=== PATIENT | male | born 1955 | race Caucasian/White ===

== ENCOUNTER 2018-06-08 09:30 | Observation (INO) ==
[2018-06-08] MEDS ORDERED: Nitroglycerin 0.4 MG TAB.SUBL SL ONE (09:40)
[2018-06-08] MEDS ORDERED: 0.9 % Sodium Chloride 1,000 ML IVC ONE (09:41)
--- NOTE | 2018-06-08 09:41 | Emergency Department Note ---
Disposition Clinical Impression: Chest pain Qualifiers: Chest pain type: unspecified Qualified Code(s): R07.9 - Chest pain, unspecified Disposition: Admitted As Inpatient Condition: Good Referrals: Lisa Durbin MD [Primary Care Provider] - Forms: ED Satisfaction Letter Time of Disposition: 12:06 Chest Pain HPI - General Chief Complaint: ED Chest Pain Stated Complaint: CP Time Seen by Provider: 06/08/18 09:39 Vital Signs Reviewed: Yes Nursing Notes Reviewed: Yes - History of Present Illness HPI Narrative: 62-year-old male past medical history of stents, hypertension, hyperlipidemia, smoking, uses emergency department with couple weeks of ongoing chest tightness , but worsening last night. Patient currently has chest pain as 2 out of 10. Received aspirin en route. Severity scale (1-10): 2 - Related Data Home Medications Medication Instructions Recorded Confirmed Metoprolol [Lopressor] 25 mg PO BID 10/01/16 06/08/18 Irbesartan/Hydrochlorothiazide 1 each PO DAILY 12/27/16 06/08/18 [Avalide 150-12.5 mg Tablet] Esomeprazole Magnesium [Nexium 20 mg PO DAILY 12/31/16 06/08/18 24Hr] Aspirin [Adult Aspirin] 81 mg PO DAILY 06/08/18 06/08/18 Previous Rx's Medication Instructions Recorded Atorvastatin [Lipitor] 40 mg PO HS #30 tablet 09/12/16 Allergies Allergy/AdvReac Type Severity Reaction Status Date / Time No Known Allergies Allergy Verified 09/10/16 16:27 All systems ED: reviewed and negative except as stated. Review of Systems: As Per HPI Constitutional: Denies: fever Cardiovascular: Reports: chest pain Respiratory: Denies: cough, dyspnea Gastrointestinal: Denies: abdominal pain, nausea, vomiting Musculoskeletal: Denies: back pain Integumentary: Denies: rash Neurological: Denies: headache Psychiatric: Denies: anxiety Chest Pain PMH - Past Medical History Medical history: Reports: coronary artery disease, GERD, hyperlipidemia, hypertension, myocardial infarction Surgical history: Reports: orthopedic, other, sinus surgery Psychiatric history: Reports: no psych history - Social History Smoking Status: Current every day smoker Alcohol use: Reports: none Drug use: Reports: none Physical Exam - General General appearance: alert, in no apparent distress - Head Head exam: normocephalic - Eye Eye exam: Present: EOMI - ENT ENT exam: normal oropharynx - Neck Neck exam: Present: trachea midline - Chest Chest inspection: Present: symmetric chest wall rise - Respiratory Respiratory exam: Present: normal lung sounds bilaterally. Absent: respiratory distress - Cardiovascular Cardiovascular exam: Present: normal rhythm, bradycardia - Abdominal Exam Abdominal exam: Present: soft, Non-Tender. Absent: distention, guarding, rebound, rigidity - Extremities Exam Extremities exam: Present: normal capillary refill - Back Exam Back exam: Present: full ROM - Neurological Exam Neurological exam: Present: alert, oriented X3 - Psychiatric Psychiatric exam: Present: normal affect, normal mood - Skin Skin exam: Present: warm, dry, intact, normal color. Absent: rash Course Vital Signs Temperature 97.7 F 06/08/18 09:34 Pulse Rate 54 06/08/18 09:34 Respiratory Rate 12 06/08/18 09:34 Blood Pressure 128/94 06/08/18 09:34 O2 Sat by Pulse Oximetry 98 06/08/18 09:34 Temperature 97.7 F 06/08/18 09:34 Pulse Rate 54 06/08/18 09:34 Respiratory Rate 12 06/08/18 09:34 Blood Pressure 128/94 06/08/18 09:34 O2 Sat by Pulse Oximetry 98 06/08/18 09:34 Oxygen Delivery Oxygen Delivery Room Air Chest Pain - MDM Narrative Medical decision making narrative: 62-year-old male presents to the emergency department with concern for chest pain. This is been ongoing for last couple weeks, worsening last night. Patient currently have chest pain 2 out of 10 now. He has received aspirin en route. Not in acute distress. Initial electrocardiogram does not reveal any ischemic ST changes. Patient was offered nitroglycerin, but did not want it. On repeat exam, patient was having very mild chest discomfort rating it as a 1.. Chest x-ray normal. Troponin negative. Patient agreed for admission. Dr. Nunez agreed to accept patient for admission Chest X-Ray 06/08/18 09:40 IMPRESSION: No acute pulmonary finding. D/ / Alek Chase MD / Alek Chase MD Interpreting Provider: Alek Chase MD Vital Signs Temperature 97.7 F 06/08/18 09:34 Pulse Rate 54 06/08/18 09:34 Respiratory Rate 12 06/08/18 09:34 Blood Pressure 128/94 06/08/18 09:34 O2 Sat by Pulse Oximetry 98 06/08/18 09:34 Temperature 97.7 F 06/08/18 09:34 Pulse Rate 54 06/08/18 09:34 Respiratory Rate 12 06/08/18 09:34 Blood Pressure 128/94 06/08/18 09:34 O2 Sat by Pulse Oximetry 98 06/08/18 09:34 Oxygen Delivery Oxygen Delivery Room Air - Lab Data Result diagrams: 06/08/18 09:57 06/08/18 09:57 Lab Results 06/08/18 06/08/18 06/08/18 Range/Units 09:57 09:57 09:57 WBC 8.5 (4.3-11.1) K/mcL RBC 5.40 (4.19-5.50) M/mcL Hgb 16.5 (12.9-16.9) g/dL Hct 47.0 (37.5-50.1) % MCV 87.0 (83.0-100.0) fL MCH 30.6 (28.0-33.3) pg MCHC 35.1 (31.6-35.5) g/dL RDW 13.0 (11.5-14.5) % Plt Count 221 (140-400) K/mcL MPV 11.5 (9.4-12.4) fL Immature Gran % 0.2 (0-4) % Seg Neutrophils % 59.4 % Lymphocytes % 30.8 % Monocytes % 5.9 % Eosinophils % 3.0 % Basophils % 0.7 % Neutrophils # 5.1 (1.6-8.9) K/mcL Lymphocytes # 2.6 (0.6-4.6) K/mcL Monocytes # 0.5 (0.0-1.3) K/mcL Eosinophils # 0.3 (0.0-0.6) K/mcL Basophils # 0.1 (0.0-0.2) K/mcL PT 11.1 (9.4-12.1) Seconds INR 1.0 APTT 32.3 (26.0-36.0) Seconds Sodium (136-145) mEq/L Potassium (3.5-5.1) mEq/L Chloride (98-107) mEq/L Carbon Dioxide (23-29) mEq/L BUN (8-23) mg/dL Creatinine (0.70-1.30) mg/dL Est GFR ( Amer) (> 60) Est GFR (Non-Af Amer) (> 60) BUN/Creatinine Ratio (6-26) Glucose (70-105) mg/dL Calculated Osmolality (280-300) Calcium (8.6-10.3) mg/dL Troponin I (< 0.04) ng/mL B-Natriuretic Peptide 34 (Less than 100) pg/mL 06/08/18 Range/Units 09:57 WBC (4.3-11.1) K/mcL RBC (4.19-5.50) M/mcL Hgb (12.9-16.9) g/dL Hct (37.5-50.1) % MCV (83.0-100.0) fL MCH (28.0-33.3) pg MCHC (31.6-35.5) g/dL RDW (11.5-14.5) % Plt Count (140-400) K/mcL MPV (9.4-12.4) fL Immature Gran % (0-4) % Seg Neutrophils % % Lymphocytes % % Monocytes % % Eosinophils % % Basophils % % Neutrophils # (1.6-8.9) K/mcL Lymphocytes # (0.6-4.6) K/mcL Monocytes # (0.0-1.3) K/mcL Eosinophils # (0.0-0.6) K/mcL Basophils # (0.0-0.2) K/mcL PT (9.4-12.1) Seconds INR APTT (26.0-36.0) Seconds Sodium 135 L (136-145) mEq/L Potassium 4.0 (3.5-5.1) mEq/L Chloride 105 (98-107) mEq/L Carbon Dioxide 24 (23-29) mEq/L BUN 14 (8-23) mg/dL Creatinine 0.85 (0.70-1.30) mg/dL Est GFR ( Amer) > 60 (> 60) Est GFR (Non-Af Amer) > 60 (> 60) BUN/Creatinine Ratio 16 (6-26) Glucose 105 (70-105) mg/dL Calculated Osmolality 281 (280-300) Calcium 9.5 (8.6-10.3) mg/dL Troponin I < 0.03 (< 0.04) ng/mL B-Natriuretic Peptide (Less than 100) pg/mL - EKG Data EKG attestation: Yes I reviewed and interpreted this EKG. EKG results narrative: 9:35 Heart rate 52 bpm, IN interval 157 ms, QRS duration 96 months seconds, QTC 431 ms, QTC 401 ms, and normal axis. Sinus bradycardia with a ventricular rate of 52 bpm. No evidence of any ischemic ST changes on this EKG. Heart Score - Score History: Moderately Suspicious EKG: Normal Age: 45-65 Risk Factors: Equal/Greater than 3 risk factor or history of atherosclerotic disease Troponin: Less than normal limit HEART Score Total: 4
[2018-06-08 10:11] LABS: Basophils # 0.1 K/mcL (0.0-0.2); Basophils % 0.7 %; Eosinophils # 0.3 K/mcL (0.0-0.6); Hemoglobin 16.5 g/dL (12.9-16.9); Immature Granulocytes % 0.2 % (0-4); Lymphocytes # 2.6 K/mcL (0.6-4.6); Lymphocytes % 30.8 %; Mean Corpuscular HGB Conc 35.1 g/dL (31.6-35.5); Mean Corpuscular Hemoglobin 30.6 pg (28.0-33.3); Mean Platelet Volume 11.5 fL (9.4-12.4); Monocytes # 0.5 K/mcL (0.0-1.3); Monocytes % 5.9 %; Neutrophils # 5.1 K/mcL (1.6-8.9); Platelet Count 221 K/mcL (140-400); Segmented Neutrophils % 59.4 %
[2018-06-08 10:16] LABS: Prothrombin Time 11.1 Seconds (9.4-12.1)
[2018-06-08 10:19] LABS: Activated Partial Thrombo Time 32.3 Seconds (26.0-36.0)
[2018-06-08 10:34] LABS: Troponin I < 0.03 ng/mL (< 0.04)
[2018-06-08 10:36] LABS: BUN/Creatinine Ratio 16 (6-26); Blood Urea Nitrogen 14 mg/dL (8-23); Calcium 9.5 mg/dL (8.6-10.3); Carbon Dioxide 24 mEq/L (23-29); Chloride 105 mEq/L (98-107); Glucose 105 mg/dL (70-105); Osmolality,Calculated 281 (280-300); Sodium 135 mEq/L (136-145); eGFR For Non-African Americans > 60 (> 60)
--- NOTE | 2018-06-08 11:01 | Emergency Department Note ---
Disposition Clinical Impression: Chest pain Qualifiers: Chest pain type: unspecified Qualified Code(s): R07.9 - Chest pain, unspecified Disposition: Admitted As Inpatient Forms: ED Satisfaction Letter General Adult HPI - General Chief complaint: ED Chest Pain Stated complaint: CP Time Seen by Provider: 06/08/18 09:39 - History of Present Illness Pain Scale: 2 - Related Data Home Medications Medication Instructions Recorded Confirmed Metoprolol [Lopressor] 25 mg PO BID 10/01/16 06/08/18 Irbesartan/Hydrochlorothiazide 1 each PO DAILY 12/27/16 06/08/18 [Avalide 150-12.5 mg Tablet] Esomeprazole Magnesium [Nexium 20 mg PO DAILY 12/31/16 06/08/18 24Hr] Aspirin [Adult Aspirin] 81 mg PO DAILY 06/08/18 06/08/18 Previous Rx's Medication Instructions Recorded Atorvastatin [Lipitor] 40 mg PO HS #30 tablet 09/12/16 Allergies Allergy/AdvReac Type Severity Reaction Status Date / Time No Known Allergies Allergy Verified 09/10/16 16:27 Past Medical History - Past Medical History Medical history: Reports: coronary artery disease, GERD, hyperlipidemia, hypertension, myocardial infarction Surgical history: Reports: orthopedic, other, sinus surgery Psychiatric history: Reports: no psych history - Social History Smoking Status: Current every day smoker Smokeless Tobacco Status: No Alcohol use: Reports: none Drug use: Reports: none Physical Exam - General General appearance: alert Course Vital Signs Temperature 97.7 F 06/08/18 09:34 Pulse Rate 54 06/08/18 09:34 Respiratory Rate 12 06/08/18 09:34 Blood Pressure 128/94 06/08/18 09:34 O2 Sat by Pulse Oximetry 98 06/08/18 09:34 Temperature 97.7 F 06/08/18 09:34 Pulse Rate 54 06/08/18 09:34 Respiratory Rate 12 06/08/18 09:34 Blood Pressure 128/94 06/08/18 09:34 O2 Sat by Pulse Oximetry 98 06/08/18 09:34 Oxygen Delivery Oxygen Delivery Room Air Medical Decision Making - Lab Data Result diagrams: 06/08/18 09:57 06/08/18 09:57 Lab Results 06/08/18 06/08/18 06/08/18 Range/Units 09:57 09:57 09:57 WBC 8.5 (4.3-11.1) K/mcL RBC 5.40 (4.19-5.50) M/mcL Hgb 16.5 (12.9-16.9) g/dL Hct 47.0 (37.5-50.1) % MCV 87.0 (83.0-100.0) fL MCH 30.6 (28.0-33.3) pg MCHC 35.1 (31.6-35.5) g/dL RDW 13.0 (11.5-14.5) % Plt Count 221 (140-400) K/mcL MPV 11.5 (9.4-12.4) fL Immature Gran % 0.2 (0-4) % Seg Neutrophils % 59.4 % Lymphocytes % 30.8 % Monocytes % 5.9 % Eosinophils % 3.0 % Basophils % 0.7 % Neutrophils # 5.1 (1.6-8.9) K/mcL Lymphocytes # 2.6 (0.6-4.6) K/mcL Monocytes # 0.5 (0.0-1.3) K/mcL Eosinophils # 0.3 (0.0-0.6) K/mcL Basophils # 0.1 (0.0-0.2) K/mcL PT 11.1 (9.4-12.1) Seconds INR 1.0 APTT 32.3 (26.0-36.0) Seconds Sodium (136-145) mEq/L Potassium (3.5-5.1) mEq/L Chloride (98-107) mEq/L Carbon Dioxide (23-29) mEq/L BUN (8-23) mg/dL Creatinine (0.70-1.30) mg/dL Est GFR ( Amer) (> 60) Est GFR (Non-Af Amer) (> 60) BUN/Creatinine Ratio (6-26) Glucose (70-105) mg/dL Calculated Osmolality (280-300) Calcium (8.6-10.3) mg/dL Troponin I (< 0.04) ng/mL B-Natriuretic Peptide 34 (Less than 100) pg/mL 06/08/18 Range/Units 09:57 WBC (4.3-11.1) K/mcL RBC (4.19-5.50) M/mcL Hgb (12.9-16.9) g/dL Hct (37.5-50.1) % MCV (83.0-100.0) fL MCH (28.0-33.3) pg MCHC (31.6-35.5) g/dL RDW (11.5-14.5) % Plt Count (140-400) K/mcL MPV (9.4-12.4) fL Immature Gran % (0-4) % Seg Neutrophils % % Lymphocytes % % Monocytes % % Eosinophils % % Basophils % % Neutrophils # (1.6-8.9) K/mcL Lymphocytes # (0.6-4.6) K/mcL Monocytes # (0.0-1.3) K/mcL Eosinophils # (0.0-0.6) K/mcL Basophils # (0.0-0.2) K/mcL PT (9.4-12.1) Seconds INR APTT (26.0-36.0) Seconds Sodium 135 L (136-145) mEq/L Potassium 4.0 (3.5-5.1) mEq/L Chloride 105 (98-107) mEq/L Carbon Dioxide 24 (23-29) mEq/L BUN 14 (8-23) mg/dL Creatinine 0.85 (0.70-1.30) mg/dL Est GFR ( Amer) > 60 (> 60) Est GFR (Non-Af Amer) > 60 (> 60) BUN/Creatinine Ratio 16 (6-26) Glucose 105 (70-105) mg/dL Calculated Osmolality 281 (280-300) Calcium 9.5 (8.6-10.3) mg/dL Troponin I < 0.03 (< 0.04) ng/mL B-Natriuretic Peptide (Less than 100) pg/mL Attestation Statement - Attestation Attestation: I examined this patient and my medical decision-making was reviewed with the Resident Physician. I agree with the documented findings, disposition and treatment plan as described except to the extent set forth below. 62 year old male presents to the ED with complaints of chest painand has a hsitory fo 3 stents with similar symptoamt now as he did in the past. He states that he is expereincing mild exertional dyspnea but not diaphoresis and has a mild midsternal discomfort. Troponin negative without ischemic changes on EKG. WE will treat him with aSA and nitro trial and likely admit ot medicine thereafter.
[2018-06-08] MEDS ORDERED: Naloxone 0.4 MG/ML INJ IVP PRN (13:02)
--- NOTE | 2018-06-08 13:27 | Internal Med History&Physical ---
Date of Encounter: 06/08/18 Time of Encounter: 12:30 Internal Medicine - H&P: HPI Chief complaint: Chest Pain Admitted From: Home Plans for Post Hospital Care: Home History of present illness: Mr. Lopez is a 62 year old male with past medical history significant for CAD with stents x3 (08/2016, 12/2016), NSTEMI, hypertension, hyperlipidemia, acid reflux, and tobacco abuse who presents for intermittent left sided chest tightness radiating to his left arm that started yesterday with intermittent shortness of breath and dizziness. Pain rated at 8/10 when most severe. Denies nausea, vomiting, or diaphoresis. No treatment prior to arrival. No alleviating or exacerbating factors. Received aspirin in ER but refused nitro, currently rating pain much improved 1/10. Occasionally checks home blood pressures and systolic pressures reportedly remain unchanged at 130-140's, but he is unsure what his heart rate typically ranges. Has been having exertional dyspnea with very light activity for about the past 4 weeks and subsequently was scheduled for a heart catheterization this 06/11/2018 with his senior sales representative at [facility] (Dr Finley). Past Med Surg Social Fam HX - Past Medical History Medical history: coronary artery disease, GERD, hyperlipidemia, hypertension, myocardial infarction Additional medical history: enlarged L ventricle Psychiatric history: no psych history - Past Surgical History Surgical History: orthopedic, other, sinus surgery Additional surgical history: bone graft surgery in sinus cavity, stents x3 - Social History Smoking Status: Current every day smoker Smokeless Tobacco Status: No Alcohol use: none Drug use: none - Family History Father Hx Family Cardiac Disorders: Yes (CABG) Mother Adopted: No Family Member Ethnicity: Non- Living Status: Still Living Hx Family Cardiac Disorders: No Hx Family Respiratory Disorders: No Hx Family Cancer: No Hx Family GI Disorders: No Hx Family Endocrine Disorder: No Hx Family Neuromuscular Disorders: No Hx Family Neurologic Disorders: No Hx Family HEENT Disorders: No Hx Family Autoimmune Disorders: No Brother Hx Family Cardiac Disorders: No Hx Family Respiratory Disorders: No Hx Family Cancer: No Hx Family GI Disorders: No Hx Family Endocrine Disorder: No Hx Family Neuromuscular Disorders: No Hx Family Neurologic Disorders: No Hx Family HEENT Disorders: No Hx Family Autoimmune Disorders: No Internal Medicine - H&P: Meds Atorvastatin [Lipitor] 40 mg PO HS #30 tablet 09/12/16 [Rx] Metoprolol [Lopressor] 25 mg PO BID 10/01/16 [History] Irbesartan/Hydrochlorothiazide [Avalide 150-12.5 mg Tablet] 1 each PO DAILY [History] Esomeprazole Magnesium [Nexium 24Hr] 20 mg PO DAILY 12/31/16 [History] Aspirin [Adult Aspirin] 81 mg PO DAILY 06/08/18 [History] 3 Allergy/AdvReac Type Severity Reaction Status Date / Time No Known Allergies Allergy Verified 09/10/16 16:27 All Systems PM: A 10-system review of systems was performed and is negative for pertinent findings except as documented above in the HPI. - Constitutional Vitals: Temp Pulse Resp BP Pulse Ox 97.7 F 62 18 143/87 97 06/08/18 09:34 06/08/18 12:34 06/08/18 12:34 06/08/18 12:34 06/08/18 12:34 Exam: General: Alert and oriented. Skin:Normal color, no rash, no lesions. HEENT:Pupils equal, round and reactive. Cardiovascular:Normal S1 & S2, no rubs, murmurs or gallops. No JVD. Pulse regular. Lungs:Normal breath sounds, no wheezes or crackles. Abdomen:Soft, non-tender, no rigidity. Extremities:No deformity, no edema or tenderness, no joint swelling or clubbing. Neurological:Normal cognition and motor skills. Pulses:Carotid and radial pulses normal +2. Rest of the physical exam is non contributory. Internal Med - H&P Results - Labs CBC & Chem 7: 06/08/18 09:57 06/08/18 09:57 Labs: Short CBC 06/08/18 Range/Units 09:57 WBC 8.5 (4.3-11.1) K/mcL Hgb 16.5 (12.9-16.9) g/dL Hct 47.0 (37.5-50.1) % Plt Count 221 (140-400) K/mcL Neutrophils # 5.1 (1.6-8.9) K/mcL BMP 06/08/18 09:57 Sodium 135 L Potassium 4.0 Chloride 105 Carbon Dioxide 24 BUN 14 Creatinine 0.85 Glucose 105 Calcium 9.5 Cardiac Enzymes 09/24/18 Range/Units 09:57 Troponin I < 0.03 (< 0.04) ng/mL - Impressions ITS Impressions Chest X-Ray 06/08/18 09:40 IMPRESSION: No acute pulmonary finding. D/ / Alek Chase MD / Alek Chase MD Interpreting Provider: Alek Chase MD - Assessment and plan (1) Chest pain Current Visit: Yes Status: Acute Assessment and plan: Cardiology consulted for further recommendations. Continuous bus monitor. Initial troponin in ER negative, serial troponins ordered. Cardiac diet. Qualifiers: Chest pain type: unspecified Qualified Code(s): R07.9 - Chest pain, unspecified (2) Dizziness Current Visit: Yes Status: Acute Assessment and plan: Orthostatic vitals ordered. Up with assist. (3) Hyperlipidemia Current Visit: No Status: Chronic Assessment and plan: Continue home medications. Qualifiers: Hyperlipidemia type: mixed hyperlipidemia Qualified Code(s): E78.2 - Mixed hyperlipidemia (4) Hypertension Current Visit: No Status: Chronic Assessment and plan: Continue home medications. Monitor for bradycardia and dizziness. Qualifiers: Hypertension type: essential hypertension Qualified Code(s): I10 - Essential (primary) hypertension (5) Tobacco abuse Current Visit: No Status: Chronic Assessment and plan: Smoking cessation encouraged. Nicotine patch refused. - Time Spent With Patient Total time spent is greater than 50% in coordination of care (as documented) at patient's floor/unit and/or counseling patient:
--- NOTE | 2018-06-08 18:32 | Electrocardiograph Report ---
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
[2018-06-09 05:56] LABS: Basophils # 0.1 K/mcL (0.0-0.2); Basophils % 0.9 %; Eosinophils # 0.5 K/mcL (0.0-0.6); Eosinophils % 6.2 %; Hematocrit 47.1 % (37.5-50.1); Hemoglobin 16.4 g/dL (12.9-16.9); Immature Granulocytes % 0.3 % (0-4); Lymphocytes # 2.6 K/mcL (0.6-4.6); Lymphocytes % 35.5 %; Mean Corpuscular HGB Conc 34.8 g/dL (31.6-35.5); Mean Corpuscular Hemoglobin 30.8 pg (28.0-33.3); Mean Corpuscular Volume 88.4 fL (83.0-100.0); Mean Platelet Volume 11.8 fL (9.4-12.4); Monocytes # 0.7 K/mcL (0.0-1.3); Monocytes % 9.4 %; Neutrophils # 3.5 K/mcL (1.6-8.9); Platelet Count 194 K/mcL (140-400); Red Blood Count 5.33 M/mcL (4.19-5.50); Red Cell Distribution Width 12.7 % (11.5-14.5); Segmented Neutrophils % 47.7 %
[2018-06-09 06:23] LABS: BUN/Creatinine Ratio 13 (6-26); Blood Urea Nitrogen 13 mg/dL (8-23); Calcium 9.1 mg/dL (8.6-10.3); Carbon Dioxide 26 mEq/L (23-29); Chloride 107 mEq/L (98-107); Glucose 106 mg/dL (70-105); Osmolality,Calculated 289 (280-300); Potassium 4.3 mEq/L (3.5-5.1); Sodium 139 mEq/L (136-145); eGFR For Non-African Americans > 60 (> 60)
[2018-06-09] MEDS: *HR* Enoxaparin 40 MG/0.4 ML SYRINGE SQ SCH (06:31)
[2018-06-09] MEDS: Aspirin Enteric Coated 81 MG Tablet PO SCH (08:53)
[2018-06-09] MEDS: Losartan/HCTZ 50-12.5 TABLET PO SCH (09:15)
--- NOTE | 2018-06-09 10:32 | Cardiology Consult Note ---
Date of Encounter: 06/09/18 Time of Encounter: 10:00 Assessment and Plan (1) Unstable angina Current Visit: Yes Status: Acute Presents with increasing symptoms over past two weeks. C/o ABRAHAM just like he felt prior ro last [place] in 2015. C/o new chest pain. [facility] already scheduled with his hydrocrane operator. EKG with no acute changes. SR with prior inferior [place]. Troponin negative x3. Known CAD. Last [facility] 12/2016 with PCI to the 1st diagonal artery. There was a 60% stenosis in the mLAD remaining. I discuss [facility] R/B/A and he agrees to proceed. Asa, statin, and bb. NTG PRN CP. (2) CAD (coronary artery disease) Current Visit: No Status: Acute H/o [place] and PCI to the LCx artery and RCA 08/2016. PCI to the 1st Dx artery 2016. Continue asa, statin, and bb. Healthy heart diet and exercise reviewed. Unfortunately he continues to smoke. Smoking cessation discussed. [facility] this admission for symptoms concerning for unstable angina. Qualifiers: Coronary Disease-Associated Artery/Lesion type: [place] artery [place] vs. transplanted heart: [place] heart Associated angina: with unstable angina Qualified Code(s): I25.110 - Atherosclerotic heart disease of [place] coronary artery with unstable angina pectoris (3) Tobacco use Current Visit: Yes Status: Acute Smoking cessation. Discussion w patient/family: The assessment and plan as outlined above was discussed with the patient and/or family members who expressed understanding and agreement. All questions were answered. Thank you for involving us in the care of your patient. Please call with any questions. History of Present Illness Consult date: 06/09/18 Requesting physician: Isaac Del Cid Consult reason: Unstable angina Chief complaint: Chest pain History of present illness: Mr. Lopez is a 62 year old male with past medical history of CAD s/p PCI 2015 and 12/2016, current tobacco use, and HTN. He presents with left sided non- radiating chest pain for the past three days. He also c/o ABRAHAM for the past two weeks. His ABRAHAM is similair to his prior [place]. He states that he saw his hydrocrane operator at [facility] and was set up for cardiac catheterization. Friday night he developed severe left sided chest pressure lasting a couple hours. He could not find his NTG. He called his hydrocrane operator office and they recommended that he go to the ED. He states he never had chest pain before. He was initially more concerned about his ABRAHAM. Past Med Surg Social Fam HX - Past Medical History Medical history: coronary artery disease, GERD, hyperlipidemia, hypertension, myocardial infarction Additional medical history: enlarged L ventricle Psychiatric history: no psych history - Past Surgical History Surgical History: orthopedic, other, sinus surgery Additional surgical history: bone graft surgery in sinus cavity, stents x3 - Social History Smoking Status: Current every day smoker Smokeless Tobacco Status: No Alcohol use: none Drug use: none - Family History Father Hx Family Cardiac Disorders: Yes (CABG) Mother Adopted: No Family Member Ethnicity: Non- Living Status: Still Living Hx Family Cardiac Disorders: No Hx Family Respiratory Disorders: No Hx Family Cancer: No Hx Family GI Disorders: No Hx Family Endocrine Disorder: No Hx Family Neuromuscular Disorders: No Hx Family Neurologic Disorders: No Hx Family HEENT Disorders: No Hx Family Autoimmune Disorders: No Brother Hx Family Cardiac Disorders: No Hx Family Respiratory Disorders: No Hx Family Cancer: No Hx Family GI Disorders: No Hx Family Endocrine Disorder: No Hx Family Neuromuscular Disorders: No Hx Family Neurologic Disorders: No Hx Family HEENT Disorders: No Hx Family Autoimmune Disorders: No Medications and Allergies Atorvastatin [Lipitor] 40 mg PO HS #30 tablet 09/12/16 [Rx] Metoprolol [Lopressor] 25 mg PO BID 10/01/16 [History] Irbesartan/Hydrochlorothiazide [Avalide 150-12.5 mg Tablet] 1 each PO DAILY [History] Esomeprazole Magnesium [Nexium 24Hr] 20 mg PO DAILY 12/31/16 [History] Aspirin [Adult Aspirin] 81 mg PO DAILY 06/08/18 [History] 3 Allergy/AdvReac Type Severity Reaction Status Date / Time No Known Allergies Allergy Verified 09/10/16 16:27 All Systems Review: The remainder of the systems were reviewed and are negative Physical Examination Vital Signs, Last 4 Hours Temp Pulse Resp BP Pulse Ox 06/09/18 07:46 98.2 F 64 16 141/83 96 General: Conversant, No Apparent Distress HEENT: Atraumatic, Normocephaly, Mucus Membranes Moist Neck: No JVD, Normal carotid pulses Cardiac: Reg Rate and Rhythm, Normal S1 and S2, No Murmur Lungs: Normal Breath Sounds, No Wheeze, Rales, Rhonchi Neuro: Alert and responsive, No focal deficits noted Abdomen: Soft, Non-Tender Skin: No rashes noted on visualized skin Musculoskeletal: No Chest Wall Tenderness Extremities: No Clubbing, No Cyanosis, No Edema, Normal Pulses Results 06/09/18 05:33 06/09/18 05:33 Lab Results 06/08/18 06/08/18 06/09/18 15:45 21:55 05:33 WBC 7.4 Hgb 16.4 Hct 47.1 Plt Count 194 Sodium Potassium Chloride Carbon Dioxide BUN Creatinine Glucose Calcium Troponin I < 0.03 < 0.03 06/09/18 05:33 WBC Hgb Hct Plt Count Sodium 139 Potassium 4.3 Chloride 107 Carbon Dioxide 26 BUN 13 Creatinine 0.98 Glucose 106 H Calcium 9.1 Troponin I - Imaging and Cardiology Echo: report reviewed Cardiac cath: report reviewed - EKG Interpretation EKG results cardiology: personally reviewed (Sr, old inferior [place]. No change from previous.) Consult Discharge Plan - Plan Referrals: Lisa Durbin MD [Primary Care Provider] -
[2018-06-09] MEDS ORDERED: 0.9 % Sodium Chloride 1,000 ML ONE ×2 (15:30→15:31)
[2018-06-09] MEDS ORDERED: Heparin 1,000 UNITS/500 mL 500 ML ONE (15:30)
[2018-06-09] MEDS ORDERED: ISOVUE-370 200 ML INFUS..BTL IV ONE (15:31)
[2018-06-09] MEDS ORDERED: Nitroglycerin 1,000 MCG/10 ML VIAL IV ONE (15:31)
[2018-06-09] MEDS ORDERED: *HR* Heparin 10,000 UNIT/10 ML VIAL ONE (15:31)
--- NOTE | 2018-06-09 15:45 | Pre-Sedation Evaluation ---
Pre-sedation evaluation - Pre-sedation checklist Date of procedure: 06/09/18 Procedure: left heart cath Recent Vitals: Last Vital Signs Temp 97.9 F 06/09/18 15:10 Pulse 58 06/09/18 15:10 Resp 16 06/09/18 15:10 BP 132/84 06/09/18 15:10 Pulse Ox 96 06/09/18 15:10 H&P (including ROS) documented in medical record: No Previous reaction to sedatives/anesthetics: No Dietary Status: NPO after Midnight Airway Assessment: Patient can open mouth completely, TMJ function normal, Micrognathia (under-bite, receding chin) absent, Neck with adequate range of motion Dentition: No loose teeth or bridges Possible difficult airway: No ASA Classification *see protocol: CLASS II-Mild systemic disease Plan of Care: Pt appropriate candidate for procedure/moderate/conscious sedation , Risks/benefits of procedure/sedation discussed w/ patient/family Cardiac Registry (Cardio Only) - Functional Capacity Functional Capacity: >=4 METS with symptoms - Clincal Frailty Scale Clinical Frailty Scale: Vulnerable
[2018-06-09] MEDS ORDERED: *HR* Midazolam HCl 2 MG/2 ML VIAL ONE (16:23)
[2018-06-09] MEDS ORDERED: *HR* FentaNYL (PF) 100 MCG/2 ML VIAL ONE (16:23)
[2018-06-09] MEDS ORDERED: Adenosine 90 MG/30 ML MLS IV ONE (16:32)
[2018-06-09] MEDS ORDERED: *HR* Ticagrelor 90 MG TABLET ONE (16:58)
[2018-06-09] MEDS ORDERED: Nitroglycerin 0.4 MG TAB.SUBL SL PRN (17:33)
[2018-06-09] MEDS: Acetaminophen 325 MG TABLET PO PRN (18:04)
[2018-06-09] MEDS ORDERED: *HR* OxyCODONE/APAP 5/325 TABLET PO ONE (19:01)
--- NOTE | 2018-06-09 20:20 | Invasive Diagnostic Lab Proc ---
Name: Micah Lopez Date of Study: 06/09/2018 Date: 1955 Ht: 72.0in Medical Record#: [id number] Age: 62 Wt: 233.69lb Gender: Male BSA: 2.28 Order #: [id number] BMI: 31.65 Physicians Procedure Physician: Myah Mcghee MD, [facility] Referring MD: Referring MD: Staff Name Position Time In Karol Hernadez RN Monitor 03:48 PM Mary Heller RN Hand Carver 03:48 PM Trish Emmanuel RT (R) Scrub 03:48 PM Indications Indication Unstable Angina Procedures Performed Procedure IV Doppler BLD Flow 1st Vessel PRQ CARD MICHAEL STENT W/ANGIO 1 VSL CORONARY ARTERY ANGIO S&I Pre-Procedure Checklist Informed consent is complete signed and on chart. H&P is on chart. ID band is on and ID verified with patient. Patient NPO for procedure The procedure was described for the patient and questions were answered. Blood Pressure: 141/83 ECG is on chart. Plan of Care Patient will tolerate the procedure without complications. Adequate level of comfort will be maintained. Hemodynamics will remain stable Patient will recover from procedure without complications. Respiratory function will be maintained. Cardiac rhythm will remain stable. Patient temperature will be maintained. Patient and/or family have verbalized understanding of the procedure. Patient Education Chief Complaint/Reason for Test: Cardiac Cath Developmental Category: Adult (18-64 years) Developmentally Appropriate for Age: Yes Learning Barriers: None Education Needs: Procedure Education Method: Verbal Information Taught: Cardiac Cath Educational Evaluation: Able to repeat information Intravenous Access Time IV Size Location DC'd Fluid/Drip Rate Units RN 03:45 PM 20g 1 1/4" Patent On Arrival Lt Antecubital Allergies No Known Allergies Vital Signs Time BP (mmHg) HR (bpm) O2 Sat. RR (bpm) LOC 03:47 PM 141 / 83 64 96 % 16 5 = Fully awake and oriented or at pre-proc level 04:22 PM / % 5 = Fully awake and oriented or at pre-proc level 04:22 PM / % 4 = Oriented but drowsy 04:37 PM / % 4 = Oriented but drowsy 04:23 PM 137 / 82 55 96 % 16 05:09 PM 130 / 95 63 96 % 18 5 = Fully awake and oriented or at pre-proc level 05:15 PM 132 / 83 57 98 % 12 5 = Fully awake and oriented or at pre-proc level 05:30 PM 117 / 84 62 94 % 16 5 = Fully awake and oriented or at pre-proc level 05:45 PM 132 / 93 64 96 % 16 5 = Fully awake and oriented or at pre-proc level 06:00 PM 147 / 102 61 97 % 18 5 = Fully awake and oriented or at pre-proc level 06:15 PM 136 / 84 61 96 % 18 5 = Fully awake and oriented or at pre-proc level 06:30 PM 126 / 81 63 99 % 18 5 = Fully awake and oriented or at pre-proc level 06:45 PM 114 / 93 60 96 % 18 5 = Fully awake and oriented or at pre-proc level 07:00 PM 124 / 79 63 95 % 16 5 = Fully awake and oriented or at pre-proc level 07:15 PM 145 / 103 59 97 % 18 5 = Fully awake and oriented or at pre-proc level 07:30 PM 145 / 96 60 96 % 18 5 = Fully awake and oriented or at pre-proc level 07:45 PM 143 / 91 61 96 % 18 5 = Fully awake and oriented or at pre-proc level 08:00 PM 139 / 94 63 95 % 18 5 = Fully awake and oriented or at pre-proc level Procedural Medications Time Medication Dose Units Method Given By 04:22 PM Oxygen 2 L/min nasal cannula Mary Heller RN 04:24 PM Versed 2 mg Intravenous Mary Heller RN 04:24 PM Fentanyl 50 mcg Intravenous Mary Heller RN 04:27 PM Lidocaine 2% 20 ml Subcutaneous Myah Mcghee MD, FACC 04:30 PM Benadryl 25 mg Intravenous Mary Heller RN 04:37 PM Angiomax 0.75mg/kg bolus: 16 ml Intravenous Mary Heller RN 04:38 PM Angiomax 1.75mg/kg/hr: 37 ml/hr Intravenous Mary Heller RN 04:42 PM 90mg Adenosine in 90 ml 0.9 NS 890 ml/hr Intravenous Mary Heller RN 04:51 PM Nitroglycerin 200 mcg Intracoronary Myah Mcghee MD, FACC 04:51 PM Nitroglycerin 200 mcg Intracoronary Myah Mcghee MD, FACC 04:56 PM Brilinta 180 mg Orally Mary Heller RN 06:00 PM Tylenol 650 mg Orally Amina Cunningham RN 07:14 PM Percocet 5325 mg Orally Amina Cunningham RN ASA Classification: CLASS II- Mild systemic disease (i.e. well-controlled diabetes, hypertension, asthma, cigarette smoking) Greg Score Preprocedure Postprocedure Activity 2- Moves 4 extremities sustained head lift Activity 2- Moves 4 extremities sustained head lift Circulation 2- SBP +/= 20 points of pre-anesthetic level Circulation 2- SBP +/= 20 points of pre-anesthetic level Consciousness 2- Awake and alert oriented x 3 Consciousness 2- Awake and alert oriented x 3 O2 Saturation 2- Able to maintain O2 satruation of 92% on room air O2 Saturation 2- Able to maintain O2 satruation of 92% on room air Respiratory 2- Able to deep breathe and cough well Respiratory 2- Able to deep breathe and cough well Total Score 10 Total Score 10 Contrast Agent: Isovue Diagnostic Contrast: 125 ml Total Contrast: 125 ml Fluoro Dose: 5375 mGy Procedure Log Time Note Enter By 03:48 PM Karol Hernadez RN Position: Monitor Time in: 15:48 scoates 03:48 PM Mary Heller RN Position: Hand Carver Time in: 15:48 scoates 03:48 PM Trish Emmanuel RT (R) Position: Scrub Time in: 15:48 scoates 03:49 PM Case Start 03:49 PM CathStat 04:10 PM Physician arrived 16:10 kmavis 04:10 PM Ranulfo and adán completed kmavis 04:10 PM Sign in performed according to hospital policy. kmavis 04:10 PM Pt arrived to labour market economist 2 at 16:10 kmavis 04:12 PM Procedure start 16:12 kmavis 04:18 PM Patient charges- Angio tray pack, Navilyst 3mm J, Pulse Oximetry and ACIST tubing and transducer kmavis 04:19 PM Hair removed from procedure site in procedure lab using clippers. Bilateral groin prepped with Chloraprep by Mary Heller RN, then patient was draped. Skin intact. kmavis 04:19 PM Vitals capture started with the following parameters, Patient=Adult, Interval=5 min, Initial Njmwlyxe=194 mmHg, Deflation Rate=5 mmHg, Cuff placed on Right Arm 04:22 PM Time: 16:22 Oxygen on at 2 L/min per nasal cannula by Mary Heller RN [facility] : PM Time: 16:22 Patient comfortable and pain free: Yes [facility] :22 PM Time: 16:22LOC: 5 = Fully awake and oriented or at pre-proc level kmavis 04:23 PM NIBP STAT measurement started. 04:23 PM HR=55 bpm, VSEN=693/82 mmhg, SpO2=96.0 %, Resp=16 B/min, Comment=nsr 04:23 PM Recorded ECG: HR=58 Condition=Condition 1 04:24 PM Time: 16:24 Versed 2 mg Intravenous Given by Mary Heller RN [facility] 04:24 PM Time: 16:24 Fentanyl 50 mcg Intravenous Given by Mary Heller RN [facility] 04:27 PM ASA Class CLASS II- Mild systemic disease (i.e. well-controlled diabetes, hypertension, asthma, cigarette smoking) kmavis 04:27 PM Time out performed according to hospital policy kmavis 04:28 PM Time: 16:27 20 ml Lidocaine 2% to right groin Subcutaneous Given by Myah Mcghee MD, [facility] kmavis 04:29 PM Access obtained by percutaneous puncture. 5Fr 10cm Terumo [place] sheath placed in right Femoral artery. [id number] [facility] 04:30 PM Time: 16:30 Benadryl 25 mg Intravenous Given by Mary Heller RN [facility] 04:30 PM 0.035 145cm Navilyst 3mmJ wire [id number] [facility] 04:30 PM Pressure channel 1 zero failed. 04:30 PM Pressure channel 1 zeroed. 04:31 PM Recorded Pressure: Ao, HR=60, Condition=Condition 1 (Aorta) Ao 102/66/83 04:31 PM 5Fr FL 4 catheter inserted over the wire [facility] 04:31 PM LCA angiography performed in multiple views. [facility] 04:31 PM Recorded Pressure: Ao, HR=62, Condition=Condition 1 (Aorta) Ao 106/67/85 04:32 PM Catheter removed [facility] 04:32 PM 5Fr FR 4 catheter inserted over the wire DNC kmavis 04:32 PM RCA angiography performed in multiple views. kmavis 04:33 PM Recorded Pressure: Ao, HR=61, Condition=Condition 1 (Aorta) Ao 101/69/84 04:34 PM Catheter removed kmavis 04:34 PM Coronary Dominance: right kmavis 04:34 PM Inflation device was opened. kmavis 04:37 PM Asist FFR Catheter advanced to target lesion. kmavis 04:37 PM Time: 16:22 Patient comfortable and pain free: Yes kmavis 04:37 PM Time: 16:22LOC: 4 = Oriented but drowsy kmavis 04:38 PM Time: 16:37 Angiomax 0.75mg/kg bolus: 16 ml Intravenous Given by Mary Heller RN Regan pump kmavis 04:38 PM Time: 16:38 Angiomax 1.75mg/kg/hr: 37 ml/hr Intravenous Given by Mary Heller RN Regan pump kmavis 04:40 PM 6Fr XB LAD 3.5 Cordis guide catheter was used to cannulate the PCI vessel successfully. reused? No kmavis 04:41 PM .014 Prowater 180cm guide wire across target lesion- successful. reused? No kmavis 04:42 PM Lesion found in Mid LAD. Pre Stenosis: 70 Pre RAFIA Flow: kmavis 04:42 PM Mid/Distal Left Anterior Descending Coronary Artery and diagonal branches with 70% stenosis. If graft is supplying this area, 0 % stenosis kmavis 04:43 PM Time: 16:42 90mg Adenosine in 90 ml 0.9 NS 890 ml/hr Intravenous Given by Mary Heller RN Regan pump kmavis 04:43 PM Recorded Pressure: Ao, PCW, HR=62, Condition=Condition 1 (Aorta) Ao 127/77/99, (Pulmonary Capillary Wedge) PCW 118/117/85 04:44 PM FFR Measurement: 0.7 kmavis 04:44 PM Flow Wire/Catheter removed intact kmavis 04:45 PM 2.0 mm x 12 mm Emerge Monorail balloon across target lesion- successful. reused? No kmavis 04:47 PM Balloon inflated @ 8 luisa for 20 seconds kmavis 04:48 PM Balloon catheter removed intact. kmavis 04:49 PM 2.5mm x 16mm Synergy drug-eluting stent across target lesion- successful Lot #[id number] kmavis 04:50 PM Stent deployed @ 12 luisa for 30 seconds kmavis 04:50 PM Stent delivery system removed intact. kmavis 04:51 PM Time: 16:51 Nitroglycerin 200 mcg Intracoronary Given by Myah Mcghee MD, [facility] kmavis 04:51 PM Time: 16:51 Nitroglycerin 200 mcg Intracoronary Given by Myah Mcghee MD, [facility] kmavis 04:52 PM Time: 16:37 Patient comfortable and pain free: Yes kmavis 04:52 PM Time: 16:37LOC: 4 = Oriented but drowsy kmavis 04:54 PM contrast injected to right groin kmavis 04:56 PM Time: 16:56 Brilinta 180 mg Orally Given by Mary Heller RN kmavis 04:56 PM Procedure completed at 16:56 06/09/2018 kmavis 04:56 PM Did you address RAFIA flow and Dominance? Yes kmavis 04:58 PM Sign out completed: Radiation Dose 422.96 mGy, 5375.27 cGy/cm2 Fluoro Time: 4.9 Isovue 370 - 200ml contrast 125 ml given by Myah Mcghee MD, [facility]. Complications: NoneCardiac Rehab Consult needed: NoConfirmed administered medications: Yes kmavis 04:58 PM Isovue 370 - 200ml,1 Bottle(s) used. kmavis 04:58 PM Sheath left in place to be pulled on floor/holding area kmavis 04:58 PM Estimated Blood Loss: minimal kmavis 04:58 PM Post ECG NSR kmavis 04:59 PM Post Blood Pressure 137/82 kmavis 04:59 PM 16:59 Post Pulses Bilateral DP & PT 2+ kmavis 04:59 PM Information taught Cardiac Cath and PCI kmavis 04:59 PM Education needs Procedure, Plan of Care, Disease Process, Safe & Effective Use of Medications, and Responsibilities of Patient in Care kmavis 04:59 PM Learning barriers :None kmavis 04:59 PM Education Methods Verbal kmavis 04:59 PM Education evaluation Able to repeat information kmavis 04:59 PM Site status No bleeding/hematoma - Rt Groin as reported by Trish Emmanuel RT (R) at 16:59 kmavis 04:59 PM Opsite applied kmavis 05:02 PM Report given to Amina LEE Pt taken to Holding room Room #3. 16:59 [facility] 05:02 PM Plavix, Effient or Brilinta given Yes [facility] 05:02 PM Delay to floor Bed availability kmavis 05:02 PM Patient out of room: 17:02 [facility] 05:02 PM Family placed in consult room. kmavis 05:02 PM Complications: None kmavis 05:06 PM Lesion found in Proximal LAD. Pre Stenosis: 25 Pre RAFIA Flow: kmavis 05:06 PM Lesion found in Proximal Circumflex. Pre Stenosis: 30 Pre RAFIA Flow: kmavis 05:07 PM Lesion found in Mid Circumflex. Pre Stenosis: 30 Pre RAFIA Flow: kmavis 05:07 PM Proximal Left Anterior Descending Coronary Artery with 25% stenosis. If graft is supplying this territory, 0 % stenosis. kmavis 05:07 PM Circumflex, Obtuse Marginal, Left Posterior Descending, and Left Posterolateral Coronary Arteries with 30 % stenosis. If graft is supplying this area, 0 % stenosis [facility] 05:[facility] PM Patient return to Blasting Entry Specialist HR 3 mprater 07:14 PM patient rates headache 0/10. c/o back pain 7/10. Percocet 5/325mg given per Dr Myah Mcghee order mprater 07:36 PM Arterial sheath pulled using manual compression and V+ Pad for 15 minutes [facility] 07:51 PM Arterial sheath pulled, closure device used and was Successful S/N. mprater 08:08 PM Report called to [facility] 08:12 PM Patient transported to [address] [place] [address] Complications Complication None Hemodynamics Pressures Site Systolic/A Wave Diastolic/V Wave Mean AO 102 66 83 AO 106 67 85 AO 101 69 84 AO 127 77 99 PCW 118 117 85 Post Procedure Information Blood Pressure: 137/82 mmHg Rhythm: NSR Post procedural instructions were given Site Checks Time Location Status Staff Sheath In? Note 04:59 PM Rt Groin No bleeding/hematoma Trish Emmanuel RT (R) 05:15 PM Rt Groin No bleeding/ No Hematoma Amina Cunningham RN Yes 05:30 PM Rt Groin No bleeding/ No Hematoma Amina Cunningham RN Yes 05:45 PM Rt Groin No bleeding/ No Hematoma Octavio, Amina D RN Yes 06:00 PM Rt Groin No bleeding/ No Hematoma Amina Cunningham RN Yes 06:15 PM Rt Groin No bleeding/ No Hematoma Amina Cunningham RN Yes 06:30 PM Rt Groin No bleeding/ No Hematoma Shelli Dewitt RN Yes 06:45 PM Rt Groin No bleeding/ No Hematoma Amina Cunningham RN Yes 07:00 PM Rt Groin No bleeding/ No Hematoma Amina Cunningham RN Yes 07:15 PM Rt Groin No bleeding/ No Hematoma Amina Cunningham RN Yes 07:30 PM Rt Groin No bleeding/ No Hematoma Amina Cunningham RN Yes 07:45 PM Rt Groin No bleeding/ No Hematoma Amina Cunningham RN 08:00 PM Rt Groin No bleeding/ No Hematoma Amina Cunningham RN Pulses Time Site Pre-Procedure Post-Procedure Note 06/09/2018 3:46:00 PM Bilateral DP 2+ 06/09/2018 3:47:00 PM Rt Radial 2+ 06/09/2018 3:47:00 PM Lt Radial 2+ 4:59:00 PM Bilateral DP & PT 2+ 06/09/2018 5:30:00 PM Bilateral DP & PT 2+ 06/09/2018 6:00:00 PM Bilateral DP & PT 2+ 06/09/2018 6:30:00 PM Bilateral DP & PT 2+ 06/09/2018 6:45:00 PM Bilateral DP & PT 2+ 06/09/2018 8:00:00 PM Bilateral DP & PT 2+ Updated by Amina Cunningham RN on 06/09/2018 8:13:26 PM Amina Cunningham RN electronically signed on 06/09/2018 8:14:05 PM with status of Final
--- NOTE | 2018-06-09 22:46 | Internal Med Progress Note ---
Hospitalist Progress Note - Encounter Date of Encounter: 06/09/18 Time of Encounter: 19:00 - Subjective Interval History: SUBJECTIVE: The patient feels good. He has not had any chest pain since admitting him to the hospital. Denies difficulty breathing, coughing and wheezing. He is to get his cardiac catheterization sometime today. OBJECTIVE: Skin: Free of rash and discoloration. ENMT: Oral/pharyngeal mucosa is normal in appearance. Eyes: Sclera is white. There is no discharge from eyes. Respiratory: Normal breath sounds; no crackles or wheezes. CV: Heart is regular; no gallop or murmur. GI: Abdomen is soft and not tender. There is no palpable mass or visceromegaly. Neuro: There is no focal deficits. ASSESSMENT AND PLAN: Chest pain in the patient with established coronary artery disease. See notes from cardiology. He is to get his cardiac catheterization today. He is on Lopressor, Hyzaar, Lipitor and Ecotrin. His troponin was checked on 3 occasions. It is normal. Hypertension. Under control. We will continue Lopressor. GERD. Under control. We will continue Prilosec. Hyperlipidemia. Continue Lipitor. - Exam Vitals: Temp Pulse Resp BP Pulse Ox 98.0 F 65 16 125/78 91 06/09/18 22:05 06/09/18 22:05 06/09/18 22:05 06/09/18 22:05 06/09/18 22:05 Exam: xx - Assessment and Plan (1) Chest pain Current Visit: Yes Status: Acute (2) CAD (coronary artery disease) Current Visit: No Status: Acute (3) Hypertension Current Visit: No Status: Chronic (4) GERD (gastroesophageal reflux disease) Current Visit: Yes Status: Acute (5) Hyperlipidemia Current Visit: No Status: Chronic - Time Spent with Patient Total time spent is greater than 50% in coordination of care (as documented) at patient's floor/unit and/or counseling patient: 25 - 35 minutes Plan of Care Discussed with: patient Internal Medicine: Result - Labs CBC & Chem 7: 06/09/18 05:33 06/09/18 05:33 Labs: Short CBC 06/09/18 Range/Units 05:33 WBC 7.4 (4.3-11.1) K/mcL Hgb 16.4 (12.9-16.9) g/dL Hct 47.1 (37.5-50.1) % Plt Count 194 (140-400) K/mcL Neutrophils # 3.5 (1.6-8.9) K/mcL BMP 06/09/18 05:33 Sodium 139 Potassium 4.3 Chloride 107 Carbon Dioxide 26 BUN 13 Creatinine 0.98 Glucose 106 H Calcium 9.1 - ABG Interpretation ABG results: PT/INR, D-dimer PT 11.1 Seconds (9.4-12.1) 06/08/18 09:57 Consult Discharge Plan - Plan Referrals: Lisa Durbin MD [Primary Care Provider] - (1) Chest pain Qualifiers: Chest pain type: unspecified Qualified Code(s): R07.9 - Chest pain, unspecified (2) CAD (coronary artery disease) Qualifiers: Coronary Disease-Associated Artery/Lesion type: [place] artery [place] vs. transplanted heart: [place] heart Associated angina: with unstable angina Qualified Code(s): I25.110 - Atherosclerotic heart disease of [place] coronary artery with unstable angina pectoris (3) Hypertension Qualifiers: Hypertension type: essential hypertension Qualified Code(s): I10 - Essential (primary) hypertension (4) GERD (gastroesophageal reflux disease) Qualifiers: Esophagitis presence: esophagitis presence not specified Qualified Code(s): K21.9 - Gastro-esophageal reflux disease without esophagitis (5) Hyperlipidemia Qualifiers: Hyperlipidemia type: mixed hyperlipidemia Qualified Code(s): E78.2 - Mixed hyperlipidemia
[2018-06-10] MEDS: Acetaminophen 325 MG TABLET PO PRN (04:14)
[2018-06-10] MEDS: *HR* Enoxaparin 40 MG/0.4 ML SYRINGE SQ SCH (04:14)
[2018-06-10] MEDS ORDERED: *HR* Ticagrelor 90 MG TABLET PO SCH (09:00)
--- NOTE | 2018-06-10 10:10 | Cardiology Progress Note ---
Date of Encounter: 06/10/18 Time of Encounter: 10:08 Assessment and Plan (1) Unstable angina Current Visit: Yes Status: Acute Presented with increasing symptoms over past two weeks. C/o ABRAHAM just like he felt prior ro last VT in 2015. C/o new chest pain. EKG with no acute changes. SR with prior inferior VT. Troponin negative x3. Known CAD. Last [facility] 12/2016 with PCI to the 1st diagonal artery. There was a 60% stenosis in the mLAD remaining. S/P [facility] yesterday--MICHAEL to mLAD. DAPT (ASA and Brilinta) uninterrupted x 1 year. Pt verbalizes understanding. Continue asa, brilinta, statin, and bb. Right femoral access site healing well. No bleeding, hematoma or ecchymosis noted. Cardiology signing off. Reconsult PRN. Will coordinate outpt follow-up in 3-4 weeks. (2) CAD (coronary artery disease) Current Visit: No Status: Acute H/o VT and PCI to the LCx artery and RCA 08/2016. PCI to the 1st Dx artery 2016. S/P [facility] yesterday--MICHAEL to mLAD. DAPT (ASA and Brilinta) uninterrupted x 1 year. Pt verbalizes understanding. Continue asa, brilinta, statin, and bb. Healthy heart diet and exercise reviewed. Unfortunately he continues to smoke. Smoking cessation discussed. Qualifiers: Coronary Disease-Associated Artery/Lesion type: [place] artery [place] vs. transplanted heart: [place] heart Associated angina: with unstable angina Qualified Code(s): I25.110 - Atherosclerotic heart disease of [place] coronary artery with unstable angina pectoris (3) Tobacco use Current Visit: Yes Status: Acute Smoking cessation. Discussion w patient/family: The assessment and plan as outlined above was discussed with the patient and/or family members who expressed understanding and agreement. All questions were answered. Thank you for involving us in the care of your patient. Please call with any questions. I will discuss all the above with Dr. Valerio and make changes as necessary. Subjective Principal diagnosis: CAD, unstable angina Interval history: S/P [facility] yesterday for unstable angina. Received MICHAEL to mLAD. Previously stented RCA, Cx, diag 1 patent. Pt denies chest pain or dyspnea overnight. Objective Vital Signs, Last 4 Hours Temp Pulse Resp BP Pulse Ox 06/10/18 07:27 97.8 F 61 16 120/85 97 Vital Signs Temp Pulse Resp BP Pulse Ox 06/10/18 07:27 97.8 F 61 16 120/85 97 06/10/18 04:50 68 18 127/79 06/10/18 04:00 97.4 F L 60 17 127/79 96 06/10/18 00:05 68 16 127/70 06/09/18 23:05 81 16 06/09/18 22:05 98.0 F 65 16 125/78 91 06/09/18 21:35 69 16 140/84 93 06/09/18 21:05 69 18 157/84 96 06/09/18 20:50 70 16 139/94 95 06/09/18 20:35 97.7 F 62 16 150/86 92 06/09/18 20:20 97.6 F 66 16 146/104 96 06/09/18 15:10 97.9 F 58 16 132/84 96 06/09/18 11:52 98.1 F 54 17 124/71 96 Intake and Output 06/09/18 06/10/18 06/10/18 23:59 07:59 15:59 Intake Total 0 / 0 Output Total 350 / 350 Balance -350 / -350 Intake: Oral 0 / 0 Output: Urine 350 / 350 Other: Weight 108.6 kg Patient Weight 06/10/18 23:59 Weight 108.6 kg General: Conversant, No Apparent Distress HEENT: Atraumatic, Normocephaly, Mucus Membranes Moist Neck: No JVD, Normal carotid pulses Cardiac: Reg Rate and Rhythm, Normal S1 and S2, No Murmur Lungs: Normal Breath Sounds, No Wheeze, Rales, Rhonchi Neuro: Alert and responsive, No focal deficits noted Abdomen: Soft, Non-Tender Skin: Other (right femoral access site healing well. No bleeding, hematoma or ecchymosis noted.) Musculoskeletal: No Chest Wall Tenderness Extremities: No Clubbing, No Cyanosis, No Edema, Normal Pulses Results 06/09/18 05:33 06/09/18 05:33 Impressions Echocardiogram 06/10/18 14:43 Impressions: LVEF 65%. Normal LV chamber size, wall thickness and systolic function. Normal right ventricular structure and function. No significant valvular dysfunction. Unable to estimate pulmonary artery pressure due to lack of TR jet. Left Ventricular Wall Motion: Rest Echo Findings All wall segments showed normal motion. Findings: Study Quality * Technically adequate exam. ECG Findings * Normal sinus rhythm. Left Ventricle * LVEF 65%. * Normal LV chamber size, wall thickness and systolic function. * Indeterminate diastolic function. Right Ventricle * Normal right ventricular structure and function. Left Atrium * Normal left atrial size. Right Atrium * Normal right atrial size. Interatrial Septum * Interatrial septum not well evaluated. Aortic Valve * Mildly calcified aortic valve leaflets. * No aortic regurgitation. * No aortic stenosis. Mitral Valve * Normal mitral valve structure and function. * No mitral regurgitation. Tricuspid Valve * Normal tricuspid valve structure and function. * No tricuspid regurgitation. * Unable to estimate RVSP due to lack of TR jet. * Estimated RA pressure is 10 mmHg. Pulmonic Valve * Pulmonic valve not well visualized. * No pulmonic regurgitation. Aorta * Normally sized aortic root. Pericardium * The pericardium appears normal. IVC * Normal IVC dimensions and inspiratory collapse. Active Medications Acetaminophen (Tylenol) 650 mg PO Q6HR PRN PRN Reason: Pain Stop: 12/09/18 12:50 Last Admin: 06/10/18 04:14 Dose: 650 mg Aspirin (Aspirin Ec) 81 mg PO DAILY [facility] Stop: 12/09/18 09:01 Last Admin: 06/09/18 08:53 Dose: 81 mg Atorvastatin Calcium (Lipitor) 80 mg PO HS [facility] Stop: 12/09/18 21:01 Last Admin: 06/09/18 21:13 Dose: 80 mg Enoxaparin Sodium (Lovenox) 40 mg SQ 0600 [facility] PRN Reason: Protocol Stop: 12/09/18 06:01 Last Admin: 06/10/18 04:14 Dose: 40 mg HCTZ/Losartan Potassium (Hyzaar 50/12.5) 1 each PO DAILY [facility] Stop: 12/09/18 09:01 Last Admin: 06/09/18 09:15 Dose: 1 each Metoprolol Tartrate (Lopressor) 25 mg PO BID [facility] Stop: 12/08/18 21:01 Last Admin: 06/09/18 21:14 Dose: 25 mg Naloxone HCl (Narcan) 0.4 mg IVP Q2MIN PRN PRN Reason: SEE COMMENTS Stop: 12/08/18 13:03 Nitroglycerin (Nitroglycerin) 0.4 mg SL Q5MIN PRN PRN Reason: Chest Pain Stop: 12/09/18 17:34 Omeprazole (Prilosec) 20 mg PO DAILY [facility] Stop: 12/09/18 09:01 Last Admin: 06/09/18 08:53 Dose: 20 mg Ticagrelor (Brilinta) 90 mg PO BID [facility] Stop: 12/10/18 09:01 - Imaging and Cardiology Echo: report reviewed Cardiac cath: report reviewed - EKG Interpretation EKG results cardiology: other (12 hr tele AVG HR 64, SR, no significant pauses or arrhythmias) Consult Discharge Plan - Plan Additional Instructions: RISK FACTORS: STOP SMOKING: If you smoke, STOP. Smoking or tobacco use significantly increases your risk of heart disease because nicotine causes the arteries to narrow or constrict. It also causes fats to stick to the artery. Your chances of having a heart attack are greatly increased if you continue to smoke. For more information, call the education line for smoking cessation 7-832-QATPAEG EAT A LOW FAT/CHOLESTEROL/SODIUM DIET: This diet may help reduce your chances of having a heart attack. LIFTING: Avoid lifting anything more than 10 pounds for 5-7 days Prior to straining, laughing, sneezing and/or coughing, apply manual pressure directly over insertion site. ACTIVITY: You may walk or climb stairs as tolerated You can resume sexual activity as tolerated In general, you are encouraged to engage in a minimum of 30 minutes or more of moderate intensity physical activity, such as brisk walking, daily or at least 3 -4 times weekly BATHING Do not submerge the site into water (bath tub, hot tub, swimming pool) for 1 week. This can be a source for infection into the blood stream. You may shower after 24 hours SITE CARE: After 24 hours, you may remove the dressing and leave the site open to air. Keep the site clean and dry. Clean gently and pat dry. You can expect bruising and tenderness that gradually resolve within a week or two. Return to work as instructed per your physician Resume driving as instructed per physician Keep all scheduled follow up appointments Resume medications as instructed IMPORTANT: If prescribed a Platelet Aggregation Inhibitor such as, Plavix, Brilinta or Effient: Duration of therapy is minimum one year These medications are often used in combination with Aspirin in prevention of future heart attacks Never discontinue unless consult with your Blender Operator STROKE (CVA) Risk factors for a stroke are: Age, cigarette smoking, diabetes, excessive alcohol consumption, family history, high blood pressure, overweight, physical inactivity, prior stroke, heart attack, diagnosis of carotid artery stenosis or other artery disease. Warning signs: Sudden numbness or weakness of the face, arm or leg; especially on one side of the body, sudden confusion, trouble speaking or understanding, sudden trouble seeing in one or both eyes, sudden trouble walking, dizziness, loss of balance or coordination, sudden severe headache with no cause. Call 911 or go to the Emergency Room. CONGESTIVE HEART FAILURE: If you have been diagnosed with Congestive Heart Failure (CHF) and your symptoms return, make an appointment with your physician Weigh yourself daily. Notify your physician if you have a weight gain of two or more pounds in one day or five or more pounds in one week. If you experience any difficulty breathing, please call 911 BLEEDING: Although the risk of bleeding is minimal, it can happen. If you have any bleeding from the site, apply firm pressure above the puncture site for 10-15 minutes. If the bleeding does not stop, continue manual pressure and call 911 Contact your physician if: You develop a fever greater than 101 degrees Fahrenheit Your site becomes reddened or has any drainage You have an increase in pain or burning at the site or if a large knot forms at the site. If you experience chest pain, shortness of breath, dizziness, or extreme tiredness, stop the activity and rest. Please notify your physicians office if you experience any of these symptoms and they are not relieved by rest please call 911! Referrals: Lisa Durbin MD [Primary Care Provider] - 06/23/18 1:30 pm
[2018-06-10] MEDS: Aspirin Enteric Coated 81 MG Tablet PO SCH (10:29)
[2018-06-10] MEDS: Losartan/HCTZ 50-12.5 TABLET PO SCH (10:29)
[2018-06-10 11:49] VITALS: BP 123/80
--- NOTE | 2018-06-10 14:46 | Discharge Summary ---
Orders not resulted at time of discharge: Pending orders 06/09/18 17:31 ECG 12 lead ECG [ECG] Stat 06/10/18 06:00 ECG 12 lead ECG [ECG] AM 0600 Date of Encounter: 06/10/18 Time of Encounter: 14:41 - Discharge Diagnosis (1) Chest pain Priority: Primary Status: Acute Qualifiers: Chest pain type: unspecified Qualified Code(s): R07.9 - Chest pain, unspecified (2) CAD (coronary artery disease) Priority: Primary Status: Acute Qualifiers: Coronary Disease-Associated Artery/Lesion type: [place] artery [place] vs. transplanted heart: [place] heart Associated angina: with unstable angina Qualified Code(s): I25.110 - Atherosclerotic heart disease of [place] coronary artery with unstable angina pectoris (3) Hypertension Priority: Secondary Status: Chronic Qualifiers: Hypertension type: essential hypertension Qualified Code(s): I10 - Essential (primary) hypertension (4) GERD (gastroesophageal reflux disease) Priority: Secondary Status: Chronic Qualifiers: Esophagitis presence: esophagitis presence not specified Qualified Code(s) : K21.9 - Gastro-esophageal reflux disease without esophagitis (5) Hyperlipidemia Priority: Secondary Status: Chronic Qualifiers: Hyperlipidemia type: mixed hyperlipidemia Qualified Code(s): E78.2 - Mixed hyperlipidemia Hospital course: HOSPITAL COURSE: The patient is a 62-year-old male with established diagnosis of coronary artery disease. We admitted him with chest pain suggesting unstable angina. We presented him to cardiology. AR was ruled out. Then, he underwent cardiac catheterization. A stent was applied to the medial portion of LAD. Brilinta was added to his home medications. CONDITION AT DISCHARGE: The patient feels good. Denies chest pain and difficulty breathing. He has no problems with ambulation at all. Skin: Free of rash and discoloration. Respiratory: Normal breath sounds with no crackles and wheezes bilaterally. CV: Heart is regular with no gallop or murmur. GI: Abdomen is flat and soft with no palpable mass or visceromegaly. Neuro exam: There is no focal deficits. Normal speech, swallowing and gait. SEE DISCHARGE ORDERS/MEDICATIONS.. I advised him to quit using tobacco. He will be on double antiplatelet therapy. Discharge discussed with: patient, nurse - Time Spent with Patient Total time spent providing and/or coordinating discharge services: Greater than 30 minutes (40 minutes) - Discharge Medications Prescriptions: Nitroglycerin 0.4 mg SL Q5MIN PRN #25 tab.subl PRN Reason: Chest Pain Ticagrelor [Brilinta] 90 mg PO BID #60 tablet Home Medications: Atorvastatin [Lipitor] 40 mg PO HS #30 tablet 09/12/16 [Rx] Metoprolol [Lopressor] 25 mg PO BID 10/01/16 [History] Irbesartan/Hydrochlorothiazide [Avalide 150-12.5 mg Tablet] 1 each PO DAILY [History] Esomeprazole Magnesium [Nexium 24Hr] 20 mg PO DAILY 12/31/16 [History] Aspirin [Adult Aspirin] 81 mg PO DAILY 06/08/18 [History] Nitroglycerin 0.4 mg SL Q5MIN PRN #25 tab.subl 06/10/18 [Rx] Ticagrelor [Brilinta] 90 mg PO BID #60 tablet 06/10/18 [Rx] Allergies/Adverse Reactions: 3 Allergy/AdvReac Type Severity Reaction Status Date / Time No Known Allergies Allergy Verified 09/10/16 16:27 Date of admission: 06/08/18 12:57 Primary care physician: Lisa Durbin MD Consults: 06/08/18 13:06 Consult to Cardiology [CONS] Stat Comment: Consulting Provider: [facility] [place] Reason for Consult: Presents for worsening chest pain. Previous stent placement at [place] 08/2016 and 12/2016. Follows with [facility] (Dr Finley) and was scheduled for heart catheterization this 06/11/2018. Patient requesting to see [place] [facility] for futher recommendations. Call Completed: No 06/09/18 17:31 Consult to Cardiac Rehabilitation-Phase1 [CONS] Routine Comment: Reason for Consult: post op PCI Call Completed: Yes Discharging clinician: Joey Westbrook Anticipated date of discharge: 06/10/18 - Constitutional Vitals: Temp Pulse Resp BP Pulse Ox 98.1 F 67 15 123/80 95 06/10/18 11:45 06/10/18 11:45 06/10/18 11:45 06/10/18 11:45 06/10/18 11:45 General appearance: Present: A&O X 3, no acute distress, answers questions appropriately Exam: xx - Patient Status Disposition: Home, Self-Care Condition: Good Functional capacity at discharge: independent ambulation Overall status at discharge: patient is back to baseline - Discharge Instructions Instructions: Nitroglycerin (By mouth), Ticagrelor (By mouth), How to Stop Smoking (DC) Follow Up With: Eulogio Rios CNP [Advanced Practice Nurse] - (office will call patient at home with appoinment date and time) Lisa Durbin MD [Primary Care Provider] - 06/23/18 1:30 pm Additional Instructions: FOLLOW-UP WITH CARDIOLOGY -- IN 1-2 WEEKS.. RISK FACTORS: STOP SMOKING: If you smoke, STOP. Smoking or tobacco use significantly increases your risk of heart disease because nicotine causes the arteries to narrow or constrict. It also causes fats to stick to the artery. Your chances of having a heart attack are greatly increased if you continue to smoke. For more information, call the education line for smoking cessation 1-101-OOPWNWG EAT A LOW FAT/CHOLESTEROL/SODIUM DIET: This diet may help reduce your chances of having a heart attack. LIFTING: Avoid lifting anything more than 10 pounds for 5-7 days Prior to straining, laughing, sneezing and/or coughing, apply manual pressure directly over insertion site. ACTIVITY: You may walk or climb stairs as tolerated You can resume sexual activity as tolerated In general, you are encouraged to engage in a minimum of 30 minutes or more of moderate intensity physical activity, such as brisk walking, daily or at least 3 -4 times weekly BATHING Do not submerge the site into water (bath tub, hot tub, swimming pool) for 1 week. This can be a source for infection into the blood stream. You may shower after 24 hours SITE CARE: After 24 hours, you may remove the dressing and leave the site open to air. Keep the site clean and dry. Clean gently and pat dry. You can expect bruising and tenderness that gradually resolve within a week or two. Return to work as instructed per your physician Resume driving as instructed per physician Keep all scheduled follow up appointments Resume medications as instructed IMPORTANT: If prescribed a Platelet Aggregation Inhibitor such as, Plavix, Brilinta or Effient: Duration of therapy is minimum one year These medications are often used in combination with Aspirin in prevention of future heart attacks Never discontinue unless consult with your Engineering Mgr STROKE (CVA) Risk factors for a stroke are: Age, cigarette smoking, diabetes, excessive alcohol consumption, family history, high blood pressure, overweight, physical inactivity, prior stroke, heart attack, diagnosis of carotid artery stenosis or other artery disease. Warning signs: Sudden numbness or weakness of the face, arm or leg; especially on one side of the body, sudden confusion, trouble speaking or understanding, sudden trouble seeing in one or both eyes, sudden trouble walking, dizziness, loss of balance or coordination, sudden severe headache with no cause. Call 911 or go to the Emergency Room. CONGESTIVE HEART FAILURE: If you have been diagnosed with Congestive Heart Failure (CHF) and your symptoms return, make an appointment with your physician Weigh yourself daily. Notify your physician if you have a weight gain of two or more pounds in one day or five or more pounds in one week. If you experience any difficulty breathing, please call 911 BLEEDING: Although the risk of bleeding is minimal, it can happen. If you have any bleeding from the site, apply firm pressure above the puncture site for 10-15 minutes. If the bleeding does not stop, continue manual pressure and call 911 Contact your physician if: You develop a fever greater than 101 degrees Fahrenheit Your site becomes reddened or has any drainage You have an increase in pain or burning at the site or if a large knot forms at the site. If you experience chest pain, shortness of breath, dizziness, or extreme tiredness, stop the activity and rest. Please notify your physicians office if you experience any of these symptoms and they are not relieved by rest please call 911! - Diet and Activity Activity: resume usual activities as tolerated Diet: low fat, low cholesterol - VTE Deep Vein Thrombosis/Pulmonary Embolism Present on Admission: No
== END 2018-06-10 16:33 | disposition home or self-care (01) ==
LOC: 2NENU 09:30 → EMEROOARM 09:30 → SUATTDRO 12:57 → 2NENU 13:06
PROVIDERS: ADMIT Internal Medicine; ATTEND Internal Medicine